=== PATIENT | male | born 1950 | race Caucasian/White ===

== ENCOUNTER 2023-01-11 15:48 | Emergency (ER) | payer OTHER ==
[~2023-01-11] VITALS: Ht 160 cm; Wt 68.0 kg
[2023-01-11 15:58] VITALS: BP_SYST 136; PULSE 69; RESP 16; TEMP 97.7; O2SAT 99
[2023-01-11 17:39] VITALS: BP_SYST 136; PULSE 69; RESP 16; TEMP 97.7; O2SAT 99
== END 2023-01-11 17:38 | disposition home or self-care (01) ==
LOC: SED 15:48
DX: R51.9 Headache, unspecified (principal); R42 Dizziness and giddiness; R11.0 Nausea; E11.9 Type 2 diabetes mellitus without complications; I10 Essential (primary) hypertension; Z79.899 Other long term (current) drug therapy
CPT/HCPCS: 70450-TC; 76376; 99284